=== PATIENT | female | born 1975 | race Caucasian/White ===

== ENCOUNTER 2017-08-12 04:27 | Emergency (ER) | payer SELFPAY ==
[~2017-08-12] VITALS: Ht 165.1 cm; Wt 78.0 kg
[2017-08-12 04:37] VITALS: BP 122/79; PULSE 99; RESP 16; TEMP 98.4; O2SAT 99
--- NOTE | 2017-08-12 04:55 | PD ---
HPI Chief Complaint: Psychiatric Symptoms Time Seen by Provider: 04:54 Travel History International Travel<30 days: No Contact w/Intl Traveler<30days: No Traveled to known affect area: No History of Present Illness HPI 41-year-old female presents emergency department under a Grace act as a transfer from [place]. Patient is convinced that somebody has implanted a device in her. Denies suicidal homicidal ideations. She denies any acute medical needs. No other symptoms to report. [facility] Past Medical History Medical History: Denies Significant Hx Immunizations Current: Yes Tetanus Vaccination: Unknown Influenza Vaccination: No ?: Unknown Social History Alcohol Use: Yes ([facility]) Tobacco Use: Yes Substance Use: No Allergies-Medications (Allergen,Severity, Reaction): Coded Allergies: No Known Allergies (Unverified , 08/12/17) Review of Systems ROS Limitations: Poor Historian Except as stated in HPI: all other systems reviewed are Neg Physical Exam Narrative GENERAL: Well-nourished female patient in no acute distress SKIN: Focused skin assessment warm/dry. HEAD: Atraumatic. Normocephalic. EYES: Pupils equal and round. No scleral icterus. No injection or drainage. ENT: No nasal bleeding or discharge. Mucous membranes pink and moist. NECK: Trachea midline. No JVD. CARDIOVASCULAR: Regular rate and rhythm. No murmur appreciated. RESPIRATORY: No accessory muscle use. Clear to auscultation. Breath sounds equal bilaterally. GASTROINTESTINAL: Abdomen soft, non-tender, nondistended. Hepatic and splenic margins not palpable. MUSCULOSKELETAL: No obvious deformities. No clubbing. No cyanosis. No edema. NEUROLOGICAL: Awake and alert. No obvious cranial nerve deficits. Motor grossly within normal limits. Normal speech. Data Data Last Documented VS Vital Signs Date Time Temp Pulse Resp B/P (MAP) Pulse Ox O2 Delivery O2 Flow Rate FiO2 08/12/17 04:37 98.4 99 16 122/79 (93) 99 Orders Orders Psych Screen (08/12/17 05:17) Diet Regular Basic (08/12/17 Breakfast) [facility] Medical Decision Making Medical Screen Exam Complete: Yes Emergency Medical Condition: Yes Medical Record Reviewed: Yes Differential Diagnosis Mood disorder versus personality disorder versus adjustment reaction disorder versus psychosis Narrative Course 41-year-old female presents emergency department as a transfer Grace act from apart from [facility]. Patient appears without distress. Vital signs are stable. With no acute medical needs, she is medically cleared to undergo psychiatric screening for further evaluation and disposition. Mental health screening discussed with the patient. Psychiatric screen ordered. Diagnosis Primary Impression: Psychosis Qualified Codes: F29 - Unspecified psychosis not due to a substance or known physiological condition Condition: Stable Judi Wren Aug 12, 2017 04:55
[2017-08-12] MEDS ORDERED: ZOLO25TA PO (06:12)
[2017-08-12] MEDS ORDERED: ARIP2 PO (06:12)
[2017-08-12] MEDS ORDERED: HALO10TA PO (08:27)
[2017-08-12] MEDS ORDERED: NITROFURANTOIN MONOHYD MACROCR 100 MG CAP PO SCH (09:00)
[2017-08-12 10:00] VITALS: BP 151/90; PULSE 102; RESP 18; TEMP 98.3; O2SAT 97
--- NOTE | 2017-08-12 12:21 | PD ---
History of Present Illness Chief Complaint: Psychiatric Symptoms Time Seen by Provider: 11:30 Travel History International Travel<30 Days: No Contact w/Intl Traveler<30days: No Known affected area: No Legal Status Legal Status: Grace Act Grace Act Signed By: YAIR BOTTLE LABEL INSPECTOR History of Present Illness: History of Present Illness HPI 41-year-old, , single female with reported history of bipolar disorder who presents emergency department under a Grace act as a transfer from [facility]. The police were contacted by the patient in reference to her having bilateral ear pain, anxiety, pressure and claiming that the bomb squad had implanted something in her ears. She also complained of her colon hurting and she also stated that advised in her colon was making it come out of her stomach. She refused medical or mental health treatment and therefore was placed under a Grace act. While at [facility] she was diagnosed with a UTI and has begun antibiotic treatment. Records from [facility] are reviewed. It is noted and those records have patient had a CT scan of her head on July 28 and it was negative.Patient now with UTI. Patient lab work at that hospital positive for amphetamines as well as THC. Patient received Geodon and Ativan while at [facility]. Patient is seen this morning, awake, alert and oriented. She is engaging and cooperative. Speech is clear, logical and goal directed, of normal rate and tone. Patient still complaining of feeling fullness in her ear but did not mention any device being implanted in her ear. Patient does not appear to be internally stimulated although at times staff have reported that she will yell out as if talking to someone. Earlier in the morning patient was overheard yelling out. When staff went in she was having her breakfast. She denied that she was hearing voices at that time. Patient denies any suicidal or homicidal ideation, intent or plan. Attention and concentration are not impaired. Patient was observed reading magazines. She is wanting to get back on her medication tells me that she has an appointment at [facility] on August 18. In terms of her substance use the patient minimizes her use of illegal substances. She does admit that she was snorting methamphetamine prior to developing the ear pain but does not believe that her use of methamphetamines affects her mental status. [facility] Past Medical History Medical History: Denies Significant Hx Anxiety: Yes Depression: Yes Gastrointestinal Disorders: Yes Immunizations Current: Yes Tetanus Vaccination: Unknown Influenza Vaccination: No ?: Not Past Surgical History Section: Yes Hysterectomy: Yes Other Surgery: Yes (BREAST, FOOT) Psychiatric History Psychiatric History Hx Psychiatric Treatment: First psychiatric hospitalization in January 2017 at [facility] and later at [facility]. Reports 1 previous suicidal gesture by "attempting to squeeze her neck . History of Inpatient Treatment: Yes Guns or firearms in home: No Social History Patient is . Was for 20 years. Currently lives with her mother and her mother's boyfriend for the past 3-1/2 years. She has an 18-year- old and a 16-year-old child. 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 She is currently unemployed. She is applying for Social Security disability benefits. Hx Alcohol Use: No Hx Tobacco Use: Yes Hx Substance Use: Yes Substance Use Type: Marijuana, Amphetamines-Stimulants Other Substances Used: Patient minimizes use of substances Hx of Substance Use Treatment: No Family Psychiatric History Mother with reported ADHD. Allergies-Medications (Allergen,Severity, Reaction): Coded Allergies: Penicillins (Verified Allergy, Unknown, 08/12/17) ketorolac (Verified Allergy, Unknown, 08/12/17) mold (Verified Allergy, Unknown, 08/12/17) morphine (Verified Allergy, Unknown, 08/12/17) sumatriptan (Verified Allergy, Unknown, 08/12/17) Reported Meds & Prescriptions Reported Meds & Active Scripts Active Reported Haloperidol 10 Mg Tab 10 Mg PO DAILY Review of Systems Ears, nose, mouth, throat: COMPLAINS OF: Tinnitus, Ear Pain Gastrointestinal: COMPLAINS OF: Abdominal pain Mental Status Examination Appearance: Appropriate Consciousness: Alert Orientation: x4 Motor Activity: Normal gait Speech: Unremarkable Language: Adequate Fund of Knowledge: Adequate Attention and Concentration: Adequate Memory: Unremarkable Mood: Anxious Affect: Appropriate Thought Process & Associations: Intact, Logical, Goal directed Thought Content: Appropriate Hallucination Type: None Delusion Type: None Suicidal Ideation: No Suicidal Plan: No Suicidal Intention: No Homicidal Ideation: No Homicidal Plan: No Homicidal Intention: No Insight: Fair Judgment: Adequate MDM Medical Decision Making Medical Record Reviewed: Yes Assessment/Plan 41-year-old, , single female with reported history of bipolar disorder who presents emergency department under a Grace act as a transfer from [facility]. The police were contacted by the patient in reference to her having bilateral ear pain, anxiety, pressure and claiming that the bomb squad had implanted something in her ears. She also complained of her colon hurting and she also stated that advised in her colon was making it come out of her stomach. She refused medical or mental health treatment and therefore was placed under a Grace act. Patient was monitored here in secure environment and she only presented episodic yelling out. When patient was questioned about yelling out she initially reported she was hearing voices and then she denied that that was the cause of her yelling out. She did not appear internally stimulated. Not manic or hypomanic. No psychosis and no jorge. Patient is requesting to be discharged and she does not meet criteria to remain under the Grace act. She reports compliance with medication and has an appointment at the [facility] on August 18. Her recent delusional thinking may have been as a result of her amphetamine use but nevertheless it has cleared now. The Grace act will be lifted. Psychiatric clear for discharge. 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
[2017-08-12] MEDS ORDERED: MACR100C2 PO (14:17)
--- NOTE | 2017-08-12 14:18 | PD ---
Physical Exam Time Seen by Provider: 14:16 Narrative EARL Greenberg has evaluated patient, lifted the Grace act and cleared the patient for discharge. Data Data Last Documented VS Vital Signs Date Time Temp Pulse Resp B/P (MAP) Pulse Ox O2 Delivery O2 Flow Rate FiO2 08/12/17 10:00 98.3 102 18 151/90 (110) 97 Room Air Orders Orders Psych Screen (08/12/17 05:17) Diet Regular Basic (08/12/17 Breakfast) Nitrofurantoin Monohyd Macrocr (Macrobid (08/12/17 09:00) Diet Regular Basic (08/12/17 Lunch) Ziprasidone (Geodon) (08/12/17 15:00) Ed Discharge Order (08/12/17 14:18) [facility] Supervised Visit with SUSI: No Narrative Course EARL Greenberg has evaluated patient, lifted the Grace act and cleared the patient for discharge. The nurse called me and asked me to come look at the patient's left ear because she is complaining of left ear pain. I evaluated the patient's ears and my findings included: EARS: Bilateral pinnae and external canals appear within normal limits. Bilateral tympanic membranes without erythema, dullness or perforation. There are no signs of ear infection or a reason causing the patient's pain. Patient is cleared for discharge. Macrobid prescription provided for home for UTI. Patient contracts safety. Denies suicidal or homicidal ideations. Patient will be provided community resource packet to /[facility] for follow-up. Has friends and family for support. Patient was medically cleared by alternate provider prior to psych screening. Patient has been evaluated by psychiatry and and is now cleared for discharge. 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 Qualified Codes: F15.950 - Other stimulant use, unspecified with stimulant- induced psychotic disorder with delusions UTI (urinary tract infection) Qualified Codes: N39.0 - Urinary tract infection, site not specified Referrals: [facility] (Out patient) [facility] Primary Care Physician Psychiatrist [facility] Patient Instructions: General Instructions, Polysubstance Abuse (ED), Urinary Tract Infection in Women (ED) Additional Instruction: Contract safety to your self and others Follow-up with psychiatry Follow-up with primary care provider Follow-up with Juan Pablo Goldman Return to the emergency department immediately with worsening of symptoms Take antibiotics as prescribed and complete full course Drink plenty of fluids Maintain good personal hygiene Follow-up with primary care provider Return to the emergency department immediately with worsening of symptoms Med/Other Pt SpecificInfo: Prescription(s) given Scripts Nitrofurantoin Monohydrate Macrocrystals (Macrobid) 100 Mg Cap 100 MG PO BID for Infection for 5 Days, #10 CAP 0 Refills Prov: Alisia Rodríguez 08/12/17 Disposition: 01 DISCHARGE HOME Condition: Stable Alisia Rodríguez Aug 12, 2017 14:18
[2017-08-12 14:54] VITALS: BP 136/86; PULSE 92; RESP 18; TEMP 98.2; O2SAT 98
[2017-08-12] MEDS ORDERED: GEOD80CA PO (15:00)
[2017-08-12] MEDS ORDERED: ZIPRASIDONE HCL 80 MG CAP PO ONE (15:00)
== END 2017-08-12 15:05 | disposition home or self-care (01) ==
LOC: NEPD 04:27 → NEPJ 15:05
DX: F29 Unspecified psychosis not due to a substance or known physiological condition (principal); F15.950 Other stimulant use, unspecified with stimulant-induced psychotic disorder with delusions; H92.03 Otalgia, bilateral; N39.0 Urinary tract infection, site not specified; Z72.0 Tobacco use
CPT/HCPCS: 99283